=== PATIENT | female | born 1965 | race Caucasian/White ===

== ENCOUNTER 2018-06-26 13:55 | Outpatient (REF) | payer BC, SELFPAY | END 2018-06-26 14:15 | LOC: NCHCN 13:55 | PROVIDERS: PCP Family Medicine; Visit Provider Nurse Practitioner | DX: R30.0 Dysuria (principal) | CPT/HCPCS: 87086 ==

== ENCOUNTER 2019-04-09 02:04 | Outpatient (RCR) | payer BC, SELFPAY ==
[2019-04-09 09:56] VITALS: BP 120/75; PULSE 80; RESP 18; TEMP 36.6; O2SAT 99
[2019-04-09] MEDS: Normal Saline Flush 10 ML SYR IVP (10:31)
[2019-04-09] MEDS: Proteinase Inhibitor 5 VIAL in EMPTY EVACUATED CONTAINER 1 EACH 100 VIAL IVPB (10:31)
[2019-04-09 10:35] VITALS: BP 125/80; PULSE 76; RESP 18; TEMP 36.6; O2SAT 97
[2019-04-09 10:50] VITALS: BP 115/74; PULSE 75; RESP 19; TEMP 36.6; O2SAT 96
[2019-04-09 11:05] VITALS: BP 117/70; PULSE 75; RESP 18; TEMP 37; O2SAT 96
[2019-04-09 11:20] VITALS: BP 115/80; PULSE 75; RESP 18; TEMP 37; O2SAT 97
== END 2019-04-10 23:59 | disposition home or self-care (01) ==
LOC: INF 02:04
PROVIDERS: PCP Family Medicine; Visit Provider Internal Medicine
DX: E88.01 Alpha-1-antitrypsin deficiency (principal)
CPT/HCPCS: 96365; J0257

== ENCOUNTER 2021-05-14 13:28 | Outpatient (REF) | payer BC, OTHER, SELFPAY ==
[2021-05-14 15:41] LABS: HCT 42.1 % (36.0-46.0); HGB 13.9 g/dL (11.2-15.7); MCH 31.9 pg (27.0-33.0); MCV 96.6 fL (80-95); MPV 10.4 fL (8.0-11.0); Platelet Count 311 10^3/uL (130-400); RBC 4.36 10^6/uL (3.93-5.22); RDW 12.3 % (11.7-14.6); WBC 6.47 10^3/uL (4.4-10.8)
[2021-05-14 15:54] LABS: ALT 27 U/L (14-59); AST 14 U/L (15-37); Alkaline Phosphatase 97 U/L (46-116); Anion Gap 12.4 mmol/L (3-11); BUN 22 mg/dL (7-18); Bilirubin, Total 0.6 mg/dL (0.2-1.0); CO2 26.6 mmol/L (21.0-32.0); CREATININE 0.8 mg/dL (0.55-1.02); Calcium 9.4 mg/dL (8.5-10.1); Calculated LDL 160 mg/dL (<100); Chloride 104 mmol/L (98-107); Cholesterol 271 mg/dL (<200); Glucose 98 mg/dL (74-106); HDL Cholesterol 77 mg/dL (40-60); Potassium 4.4 mmol/L (3.5-5.1); Sodium 143 mmol/L (136-145); Total Protein 7.4 g/dL (6.4-8.2); Triglyceride 173 mg/dL (<150)
== END 2021-05-14 13:29 | disposition home or self-care (01) ==
LOC: NCHCN 13:28
PROVIDERS: PCP Family Medicine; Visit Provider Family Medicine
DX: E78.5 Hyperlipidemia, unspecified (principal); E88.01 Alpha-1-antitrypsin deficiency
CPT/HCPCS: 80053; 80061; 82306; 85027

== ENCOUNTER 2021-05-17 15:00 | Outpatient (REF) | payer OTHER, SELFPAY ==
--- NOTE | 2021-05-17 14:00 | PAPFT_PTH ---
PATIENT: Trinity Duffy LOC: [facility] U#:[id number] AGE/SX: 56/F ROOM: RE05/17/[address]: Gayla Larose : 1965 BED: DIS: 05/17/2021 SPEC #: [id number] RECD: 05/18/21 12:50 STATUS: MATIAS REJorge Alberto #: [id number] NILDA: 05/17/21 14:[address]: Gayla Larose DEPT: [facility] Cytology RECD BY: Mabel Ontiveros ENTERED: 05/18/21 12:50 SP TYPE: PAPFT OTHR DR: Priscilla Devine Tissues: 1 - CX/ENDOCX FOR PAP SMEARS Procedures: PAP THIN PREP/[facility] Screening HPV DNA PROBE Comments: [id number]
== END 2021-05-17 15:01 | disposition home or self-care (01) ==
LOC: NCHCN 15:00
PROVIDERS: PCP Family Medicine; Visit Provider Family Medicine
DX: Z12.4 Encounter for screening for malignant neoplasm of cervix (principal); Z11.51 Encounter for screening for human papillomavirus (HPV)
CPT/HCPCS: 88142; 87624

== ENCOUNTER 2022-10-24 16:00 | Outpatient (REF) | payer OTHER, SELFPAY | END 2022-10-24 16:01 | disposition home or self-care (01) | LOC: NCHCN 16:00 | PROVIDERS: PCP Family Medicine; Visit Provider Family Medicine | DX: R31.9 Hematuria, unspecified (principal) | CPT/HCPCS: 87086 ==

== ENCOUNTER 2023-01-17 14:17 | Outpatient (REF) | payer OTHER, SELFPAY ==
[2023-01-17 16:52] LABS: ALT 26 U/L (14-59); AST 16 U/L (15-37); Alkaline Phosphatase 99 U/L (46-116); Anion Gap 9.9 mmol/L (3-11); BUN 16 mg/dL (7-18); Bilirubin, Total 0.7 mg/dL (0.2-1.0); CO2 25.1 mmol/L (21.0-32.0); CREATININE 0.8 mg/dL (0.55-1.02); Calcium 9.2 mg/dL (8.5-10.1); Calculated LDL 141 mg/dL (<100); Chloride 105 mmol/L (98-107); Cholesterol 240 mg/dL (<200); Estimated GFR 85.35 (mL/min/1.73m2); Glucose 91 mg/dL (74-106); HDL Cholesterol 87 mg/dL (40-60); Potassium 4.2 mmol/L (3.5-5.1); Sodium 140 mmol/L (136-145); Total Protein 7.3 g/dL (6.4-8.2); Triglyceride 64 mg/dL (<150)
[2023-01-17 17:09] LABS: Vitamin D 25 Total 54.9 ng/mL (30-100)
== END 2023-01-17 14:18 | disposition home or self-care (01) ==
LOC: NCHCN 14:17
PROVIDERS: PCP Family Medicine; Visit Provider Family Medicine
DX: E78.5 Hyperlipidemia, unspecified (principal); E55.9 Vitamin D deficiency, unspecified
CPT/HCPCS: 80053; 80061; 82306

== ENCOUNTER 2023-08-29 16:39 | Outpatient (REF) | payer OTHER, SELFPAY ==
[2023-08-29 21:27] LABS: HCT 41.4 % (36.0-46.0); HGB 13.9 g/dL (11.2-15.7); MCH 32.1 pg (27.0-33.0); MCHC 33.6 % (32.0-36.0); MCV 96 fL (80-95); MPV 10.3 fL (8.0-11.0); Platelet Count 294 10^3/uL (130-400); RBC 4.33 10^6/uL (3.93-5.22); RDW 12.4 % (11.7-14.6); WBC 6.96 10^3/uL (4.4-10.8)
[2023-08-29 21:41] LABS: ALT 28 U/L (14-59); AST 19 U/L (15-37); Albumin 4.2 g/dL (3.4-5.0); Alkaline Phosphatase 115 U/L (46-116); Anion Gap 11.1 mmol/L (3-11); BUN 20 mg/dL (7-18); Bilirubin, Total 0.9 mg/dL (0.2-1.0); CO2 24.9 mmol/L (21.0-32.0); CREATININE 0.8 mg/dL (0.55-1.02); Calcium 9.4 mg/dL (8.5-10.1); Calculated LDL 148 mg/dL (<100); Chloride 103 mmol/L (98-107); Cholesterol 271 mg/dL (<200); Estimated GFR 84.82 (mL/min/1.73m2); Glucose 86 mg/dL (74-106); HDL Cholesterol 98 mg/dL (40-60); Potassium 4.2 mmol/L (3.5-5.1); Sodium 139 mmol/L (136-145); Total Protein 7.6 g/dL (6.4-8.2); Triglyceride 126 mg/dL (<150)
[2023-08-29 22:02] LABS: Vitamin D 25 Total 62.3 ng/mL (30-100)
== END 2023-08-29 16:40 | disposition home or self-care (01) ==
LOC: NCHCN 16:39
PROVIDERS: PCP Family Medicine; Visit Provider Family Medicine
DX: Z00.00 Encounter for general adult medical examination without abnormal findings (principal); Z13.220 Encounter for screening for lipoid disorders; Z13.21 Encounter for screening for nutritional disorder; Z13.228 Encounter for screening for other metabolic disorders; Z13.0 Encounter for screening for diseases of the blood and blood-forming organs and certain disorders involving the immune mechanism
CPT/HCPCS: 80053; 80061; 82306; 85027

== ENCOUNTER 2024-08-24 12:45 | Outpatient (REF) | payer OTHER, SELFPAY ==
[2024-08-24 14:33] LABS: HCT 43.3 % (36.0-46.0); HGB 14.2 g/dL (11.2-15.7); MCH 31.9 pg (27.0-33.0); MCHC 32.8 % (32.0-36.0); MCV 97 fL (80-95); MPV 10.2 fL (8.0-11.0); Platelet Count 309 10^3/uL (130-400); RBC 4.45 10^6/uL (3.93-5.22); RDW 12.4 % (11.7-14.6); WBC 7.17 10^3/uL (4.4-10.8)
[2024-08-24 15:19] LABS: ALT 36 U/L (14-59); AST 23 U/L (15-37); Albumin 4.1 g/dL (3.4-5.0); Alkaline Phosphatase 126 U/L (46-116); Anion Gap 9.7 mmol/L (3-11); BUN 16 mg/dL (7-18); Bilirubin, Total 0.8 mg/dL (0.2-1.0); CO2 28.3 mmol/L (21.0-32.0); CREATININE 0.8 mg/dL (0.55-1.02); Calcium 9.5 mg/dL (8.5-10.1); Calculated LDL 66 mg/dL (<100); Chloride 107 mmol/L (98-107); Cholesterol 192 mg/dL (<200); Glucose 84 mg/dL (74-106); HDL Cholesterol 116 mg/dL (>or=50); Potassium 4.5 mmol/L (3.5-5.1); Sodium 145 mmol/L (136-145); Total Protein 7.5 g/dL (6.4-8.2); Triglyceride 52 mg/dL (<150); Vitamin D 25 Total 60 ng/mL (30-100)
== END 2024-08-24 12:46 | disposition home or self-care (01) ==
LOC: NCHCN 12:45
PROVIDERS: PCP Family Medicine; Visit Provider Family Medicine
DX: Z00.00 Encounter for general adult medical examination without abnormal findings (principal); E78.5 Hyperlipidemia, unspecified; E55.9 Vitamin D deficiency, unspecified
CPT/HCPCS: 80053; 80061; 82306; 85027